=== PATIENT | female | born 1955 | race Caucasian/White ===

== ENCOUNTER 2018-05-01 10:10 | Outpatient (CLI) | payer OTHER ==
--- NOTE | 2018-05-01 11:59 | MMO ---
BILATERAL SCREENING MAMMOGRAMS: Date: 05/01/18 HISTORY: 63-year-old female patient presenting for screening mammography. Patient has reported history of mult iple bilateral benign breast biopsies. COMPARISON: 04/10/17, 03/06/16, 02/24/15, 12/22/13. FINDINGS: There are scattered fibroglandular densities seen in each breast. Multiple scattered benign-appearing calcifications are again seen in each breast. There is a focal asymmetry with suggestion of architec tural distortion seen within the posterior depth outer right breast, only seen on the CC projection. While there is a questionable area of asymmetry on the study of 2016, no abnormality is seen in this region in 2017 or 2015. No definite corresponding abnormality is seen on the MLO projection. No domin ant mass or suspicious grouping of microcalcifications are seen in either breast. Intramammary lymph nodes are again seen in the upper outer left breast. IMPRESSION: BIRADS 0: Incomplete: Need Additional Imaging Evaluation and/or Prior Mammograms for Comparison A spot compression CC view right breast with 3D tomosynthesis is recommended for further evaluation. A 90 degree mediolateral view is also recommended. Ultrasound can be scheduled if needed. The facility will notify patient of need for additional imaging services. POS: [facility]
== END 2018-05-01 10:11 | disposition home or self-care (01) ==
LOC: SCSMAMMO 10:10
PROVIDERS: ATTEND Obstetrics & Gynecology
DX: Z12.31 Encounter for screening mammogram for malignant neoplasm of breast (principal)
CPT/HCPCS: 77067

== ENCOUNTER 2018-05-08 09:54 | Outpatient (CLI) | payer OTHER | END 2018-05-08 09:55 | disposition home or self-care (01) | LOC: BICMAMMO 09:54 | PROVIDERS: ATTEND Obstetrics & Gynecology | DX: R92.2 Inconclusive mammogram (principal) | CPT/HCPCS: G0279 ==

== ENCOUNTER 2019-05-27 14:30 | Outpatient (CLI) | payer MEDICARE ==
--- NOTE | 2019-05-27 16:39 | MMO ---
Bilateral MAMMO Bilat Screen [facility]. CLINICAL HISTORY: Patient is 64 years old and is seen for screening. The patient has no family history of breast cancer. The patient has no personal history of cancer. VIEWS: The views performed were: bilateral craniocaudal with tomosynthesis and bilateral mediolateral oblique with tomosynthesis. FILMS COMPARED: The present examination has been compared to prior imaging studies performed at [facility] on 03/06/2016, 04/10/2017 and 05/01/2018, and at [facility] on 05/08/2018. This study has been interpreted with the assistance of computer-aided detection. MAMMOGRAM FINDINGS: There are scattered fibroglandular densities. There are benign appearing calcifications seen in both breasts. There are benign scattered densities in both breasts. There are no suspicious masses, suspicious calcifications, or new areas of architectural distortion. IMPRESSION: THERE IS NO MAMMOGRAPHIC EVIDENCE OF MALIGNANCY. A ROUTINE FOLLOW-UP MAMMOGRAM IN 1 YEAR IS RECOMMENDED. THE RESULTS OF THIS EXAM WERE SENT TO THE PATIENT. ACR BI-RADS Category 2 - Benign finding MAMMOGRAPHY NOTE: 1. A negative mammogram report should not delay a biopsy if a dominant of clinically suspicious mass is present. 2. Approximately 10% to 15% of breast cancers are not detected by mammography. 3. Adenosis and dense breasts may obscure an underlying neoplasm. Reported by: PRESLEY SAMUEL MD Electonically Signed: [id number]
== END 2019-05-27 14:31 | disposition home or self-care (01) ==
LOC: BICMAMMO 14:30
PROVIDERS: ATTEND Family Medicine
DX: Z12.31 Encounter for screening mammogram for malignant neoplasm of breast (principal)
CPT/HCPCS: 77063; 77067

== ENCOUNTER 2020-06-16 12:38 | Outpatient (CLI) | payer MEDICARE ==
--- NOTE | 2020-06-16 14:30 | MMO ---
Bilateral MAMMO Bilat Screen [facility]. CLINICAL HISTORY: Patient is 65 years old and is seen for screening. The patient has no family history of breast cancer. The patient has no personal history of cancer. The patient has a history of bilateral Excisional Biopsy - benign. VIEWS: The views performed were: bilateral craniocaudal with tomosynthesis and bilateral mediolateral oblique with tomosynthesis. FILMS COMPARED: The present examination has been compared to prior imaging studies performed at [facility] on 04/10/2017 and 05/01/2018, and at [facility] on 05/08/2018 and 05/27/2019. This study has been interpreted with the assistance of computer-aided detection. MAMMOGRAM FINDINGS: There are scattered fibroglandular densities. Benign calcifications are noted bilaterally. There are no suspicious masses, suspicious calcifications, or new areas of architectural distortion. IMPRESSION: THERE IS NO MAMMOGRAPHIC EVIDENCE OF MALIGNANCY. A ROUTINE FOLLOW-UP MAMMOGRAM IN 1 YEAR IS RECOMMENDED. THE RESULTS OF THIS EXAM WERE SENT TO THE PATIENT. ACR BI-RADS Category 2 - Benign finding MAMMOGRAPHY NOTE: 1. A negative mammogram report should not delay a biopsy if a dominant of clinically suspicious mass is present. 2. Approximately 10% to 15% of breast cancers are not detected by mammography. 3. Adenosis and dense breasts may obscure an underlying neoplasm. Reported by: BOBBY JACOB MD Electonically Signed: [id number]
== END 2020-06-16 12:39 | disposition home or self-care (01) ==
LOC: BICMAMMO 12:38
PROVIDERS: ATTEND Family Medicine
DX: Z12.31 Encounter for screening mammogram for malignant neoplasm of breast (principal); Z91.89 Other specified personal risk factors, not elsewhere classified
CPT/HCPCS: 77063; 77067

== ENCOUNTER 2021-05-25 09:45 | Outpatient (CLI) | payer MEDICARE | END 2021-05-25 09:46 | disposition home or self-care (01) | LOC: BICRAD 09:45 | PROVIDERS: ATTEND Family Medicine | DX: R07.81 Pleurodynia (principal) ==

== ENCOUNTER 2024-01-20 15:14 | Outpatient (CLI) | payer MEDICARE | END 2024-01-20 15:15 | disposition home or self-care (01) | LOC: SCSRAD 15:14 | PROVIDERS: ATTEND Family Medicine | DX: M79.671 Pain in right foot (principal); M25.562 Pain in left knee; S92.511A Displaced fracture of proximal phalanx of right lesser toe(s), initial encounter for closed fracture ==